=== PATIENT | female | born 1970 | race Caucasian/White ===

== ENCOUNTER 2017-05-06 06:50 | Day surgery (SDC) | payer BC ==
[~2017-05-06 06:50] MED LIST: LIDOCAINE HCL 1% MPF SOL ONE; PROPOFOL 500 MG/50 ML EMU IV ONE
[2017-05-06 09:13] VITALS: TEMP 97.3
[2017-05-06 09:38] VITALS: RESP 20
[2017-05-06 09:48] VITALS: BP 125/79; PULSE 72; O2SAT 98
== END 2017-05-06 10:21 | disposition home or self-care (01) ==
LOC: SURG 06:50
PROVIDERS: ATTEND Internal Medicine Gastroenterology
DX: K59.09 Other constipation (principal); R10.30 Lower abdominal pain, unspecified; Z83.71 Family history of colonic polyps; K57.30 Diverticulosis of large intestine without perforation or abscess without bleeding; K64.8 Other hemorrhoids
CPT/HCPCS: 45378; 99001; J2001; J2704